=== PATIENT | female | born 1990 | race Caucasian/White ===

== ENCOUNTER 2019-12-19 16:50 | Emergency (ER) | payer OTHER ==
[~2019-12-19] VITALS: Ht 170.2 cm; Wt 54.7 kg
--- NOTE | 2019-12-19 18:10 | RAD ---
Bilateral lower extremity arterial duplex study 12/19/2019 CLINICAL HISTORY: Bilateral leg numbness with discolored toes. TECHNIQUE: Using a combination of real-time ultrasound imaging and color-flow and pulse doppler imaging techniques, duplex evaluation of the major arterial structures of both lower extremities was performed. Multiple images were obtained. FINDINGS: No significant atheromatous/atherosclerotic plaque formation is seen. Normal triphasic arterial waveforms are seen throughout the major arterial structures of both lower extremities. The peak systolic velocities taper normally. No hemodynamically significant stenosis or area of occlusion is seen. IMPRESSION: Negative study. Electronically signed by: Farzad Carrasco MD (12/19/2019 6:07 PM) [id number]
--- NOTE | 2019-12-19 18:17 | PHYS DOC ---
Adult General Chief Complaint Chief Complaint: LOWER EXTREMITY SWELLING HPI HPI Patient is a [age] year old [sex] who presents with [] Review of Systems Review of Systems Constitutional: Denies fever or chills [] Eyes: Denies change in visual acuity, redness, or eye pain [] HENT: Denies nasal congestion or sore throat [] Respiratory: Denies cough or shortness of breath [] Cardiovascular: No additional information not addressed in HPI [] GI: Denies abdominal pain, nausea, vomiting, bloody stools or diarrhea [] : Denies dysuria or hematuria [] Musculoskeletal: Denies back pain or joint pain [] Integument: Denies rash or skin lesions [] Neurologic: Denies headache, focal weakness or sensory changes [] Endocrine: Denies polyuria or polydipsia [] All other systems were reviewed and found to be within normal limits, except as documented in this note. Physical Exam Physical Exam Constitutional: Well developed, well nourished, no acute distress, non-toxic appearance. [] HENT: Normocephalic, atraumatic, bilateral external ears normal, oropharynx moist, no oral exudates, nose normal. [] Eyes: PERRLA, EOMI, conjunctiva normal, no discharge. [] Neck: Normal range of motion, no tenderness, supple, no stridor. [] Cardiovascular:Heart rate regular rhythm, no murmur [] Lungs & Thorax: Bilateral breath sounds clear to auscultation [] Abdomen: Bowel sounds normal, soft, no tenderness, no masses, no pulsatile masses. [] Skin: Warm, dry, no erythema, no rash. [] Back: No tenderness, no CVA tenderness. [] Extremities: No tenderness, no cyanosis, no clubbing, ROM intact, no edema. [] Neurologic: Alert and oriented X 3, normal motor function, normal sensory function, no focal deficits noted. [] Psychologic: Affect normal, judgement normal, mood normal. [] EKG EKG [] Radiology/Procedures Radiology/Procedures PROCEDURE: ARTERIAL STUDY LOWER EXT BI Bilateral lower extremity arterial duplex study 12/19/2019 CLINICAL HISTORY: Bilateral leg numbness with discolored toes. TECHNIQUE: Using a combination of real-time ultrasound imaging and color-flow and pulse doppler imaging techniques, duplex evaluation of the major arterial structures of both lower extremities was performed. Multiple images were obtained. FINDINGS: No significant atheromatous/atherosclerotic plaque formation is seen. Normal triphasic arterial waveforms are seen throughout the major arterial structures of both lower extremities. The peak systolic velocities taper normally. No hemodynamically significant stenosis or area of occlusion is seen. IMPRESSION: Negative study. Electronically signed by: Farzad Carrasco MD (12/19/2019 6:07 PM) [id number] Course & Med Decision Making Course & Med Decision Making Pertinent Labs and Imaging studies reviewed. (See chart for details) [] Dragon Disclaimer Dragon Disclaimer This electronic medical record was generated, in whole or in part, using a voice recognition dictation system. Departure Departure: Impression: Primary Impression: Numbness and tingling of both lower extremities Disposition: 01 HOME, SELF-CARE Condition: STABLE Referrals: ROSALINO SANTIAGO DO (PCP) Patient Instructions: Raynaud's Syndrome Additional Instructions: Discontinue use of tobacco and nicotine products JADEN SANCHEZ DO Dec 19, 2019 18:17
[2019-12-19 18:55] VITALS: BP 97/60
== END 2019-12-19 18:55 | disposition home or self-care (01) ==
LOC: ER 16:50
DX: R20.2 Paresthesia of skin (principal)
CPT/HCPCS: 93923; 99284

== ENCOUNTER → 2021-01-24 | Outpatient (CLI) | payer OTHER ==
--- NOTE | 2021-01-24 16:37 | RAD ---
Exam: Ultrasound OB less than 14 weeks Indication: Low hCG Technique: Real-time grayscale and color Doppler images of the pelvis were obtained by the department bone cooking operator. Comparisons: None FINDINGS: Uterus measures 9.0 x 5.3 x 5.5 cm. Endometrium is approximately 2 cm in thickness. No pole, yo lk sac or gestational sac are identified. Right ovary measures 3.4 x 3.1 x 2.5 cm. Left ovary measures 2.8 x 3.2 x 1.6 cm. Vascular flow identified the ovaries bilaterally. No free fluid. IMPRESSION: No pole, yolk sac or gestational sac identified. Differential considerations include early IUP, failed IUP or nonvisualized ectopic . Recommend correlation with serial beta hCG measuremen ts and short-term follow-up ultrasound. Electronically signed by: Geoff Cardona MD (01/24/2021 4:34 PM) SCOTT
== END ==
LOC: US 15:26
PROVIDERS: ATTEND Family Medicine Sports Medicine
DX: O26.91 Pregnancy related conditions, unspecified, first trimester (principal); Z3A.00 Weeks of gestation of pregnancy not specified
CPT/HCPCS: 76801; 76817

== ENCOUNTER 2021-11-05 10:21 | Emergency (ER) | payer OTHER ==
[~2021-11-05] VITALS: Ht 170.2 cm; Wt 58.2 kg
--- NOTE | 2021-11-05 10:41 | PHYS DOC ---
Past History Past Medical History: Other Additional Past Medical Histor: ADHD (ANGELA LOPEZ APRN) Past Surgical History: (ANGELA LOPEZ APRN) Alcohol Use: None Drug Use: None (ANGELA LOPEZ APRN) General Adult EDM: Chief Complaint: PAIN ON URINATION HPI: HPI: Patient is a 31-year-old female who presents with burning with urination. Patient denies abnormal discharge, odor. Patient states that symptoms started this morning. Denies taking thing at home for discomfort. Denies medical history. (ANGELA LOPEZ APRN) Review of Systems: Review of Systems: ROS At least 10 ROS systems have been reviewed and are negative except as documented in the HPI. General: Negative except as outlined in HPI above. Skin: Negative except as outlined in HPI above. HEENT: Negative except as outlined in HPI above. Neck: Negative except as outlined in HPI above. Respiratory: Negative except as outlined in HPI above.. Cardiovascular: Negative except as outlined in HPI above. Abdomen: Negative except as outlined in HPI above. : Negative except as outlined in HPI above. Back/MSK: Negative except as outlined in HPI above. Neuro: Negative except as outlined in HPI above. Psych: Negative except as outlined in HPI above. (ANGELA LOPEZ APRN) Current Medications: Current Meds: Current Medications Medications (Trade) Dose Ordered Sig/Nhi Start Time Stop Time Status Last Admin Dose Admin Phenazopyridine HCl (Pyridium) 200 mg 1X ONCE 11/05/21 11:00 11/05/21 11:01 (ANGELA LOPEZ APRN) Allergies: Allergies: Allergies Coded Allergies Type Severity Reaction Last Updated Verified Penicillins Allergy Unknown 12/22/19 Yes (ANGELA LOPEZ APRN) Physical Exam: PE: Constitutional: Well developed, well nourished, no acute distress, non-toxic appearance. [] HENT: Normocephalic, atraumatic, bilateral external ears normal, oropharynx moist, no oral exudates, nose normal. [] Eyes: PERRLA, EOMI, conjunctiva normal, no discharge. [] Neck: Normal range of motion, no tenderness, supple, no stridor. [] Cardiovascular:Heart rate regular rhythm, no murmur [] Lungs & Thorax: Bilateral breath sounds clear to auscultation [] Abdomen: Bowel sounds normal, soft, no tenderness, no masses, no pulsatile masses. [] Skin: Warm, dry, no erythema, no rash. [] Back: No tenderness, no CVA tenderness. [] Extremities: No tenderness, no cyanosis, no clubbing, ROM intact, no edema. [] Neurologic: Alert and oriented X 3, normal motor function, normal sensory function, no focal deficits noted. [] Psychologic: Affect normal, judgement normal, mood normal. [] (ANGELA LOPEZ APRN) EKG: EKG: [] (ANGELA LOPEZ APRN) Radiology/Procedures: Radiology/Procedures: [] (ANGELA LOPEZ APRN) Heart Score: C/O Chest Pain: No Risk Factors: Risk Factors: DM, Current or recent (<one month) smoker, HTN, HLP, family history of CAD, obesity. Risk Scores: Score 0 - 3: 2.5% MACE over next 6 weeks - Discharge Home Score 4 - 6: 20.3% MACE over next 6 weeks - Admit for Clinical Observation Score 7 - 10: 72.7% MACE over next 6 weeks - Early Invasive Strategies (ANGELA LOPEZ APRN) Course & Med Decision Making: Course & Med Decision Making Pertinent Labs and Imaging studies reviewed. (See chart for details) [] 31-year-old female presents with burning with urination. Afebrile. No flank pain. No abnormal discharge or odor. Work-up in ER consisted of UA and . Patient given Pyridium to help with discomfort. Discussed results with patient. Prescribed patient Macrobid. Discussed increasing fluids. (ANGELA LOPEZ APRN) Dragon Disclaimer: Draglian Disclaimer: This electronic medical record was generated, in whole or in part, using a voice recognition dictation system. (ANGELA LOPEZ APRN) Attending Co-Sign The patient was seen and interviewed as well as examined at the bedside. The chart was reviewed. The case was discussed. Agree with the plan of care. (MEREDITH GARNER DO) Departure Departure: Impression: Primary Impression: Urinary tract infection Qualified Codes: N30.00 - Acute cystitis without hematuria Disposition: HOME / SELF CARE / HOMELESS Condition: STABLE Referrals: KERRY MOON MD (PCP) Patient Instructions: Urinary Tract Infection Additional Instructions: You were seen in the emergency room for burning with urination. Your urine was tested and positive for infection. You are given Pyridium to help with discomfort. You can also purchase Azo [id number] which will help with the pain. Please take your antibiotic as directed. Drink plenty of fluids. Return to emergency room with worsening symptoms or concerns. EMERGENCY DEPARTMENT GENERAL DISCHARGE INSTRUCTIONS Thank you for coming to [facility] (ED) today and trusting us with you care. We trust that you had a positivie experience in our Emergency Department. If you wish to speak to the department management, you may call the director at [phone]. YOUR FOLLOW UP INSTRUCTIONS ARE FOLLOWS: 1. Do you have a private Doctor? If you do not have a private doctor, please ask for a resource list of physicians or clinics that may be able to assist you with follow up care. 2. The Emergency Physician has interpreted your x-rays. The X-Ray specialist will also review them. If there is a change in the findings, you will be notified in 48 hours when at all possible. 3. A lab test or culture has been done, your results will be reviewed and you will be notified if you need a change in treatment. ADDITIONAL INSTRUCTIONS AND INFORMATION: 1. Your care today has been supervised by a physician who is specially trained in emergency care. Many problems require more than one evaluation for a complete diagnosis and treatment. We recommend that you schedule your follow up appointment as recommended to ensure complete treatment of you illness or injury. If you are unable to obtain follow up care and continue to have a problem, or if your condition worsens, we recommend that you return to the ED. 2. We are not able to safely determine your condition over the phone nor are we able to give sound medical advice over the phone. For these safety reasons, if you call for medical advice we will ask you to come to the ED for further evaluation. 3. If you have any questions regarding these discharge instructions please call the ED at [phone]. SAFETY INFORMATION: In the interest of safety, wellness, and injury prevention; we encourage you to wear your sealbelt, if you smoke; quite smoking, and we encourage family to use a protective helmet for bicycling and other sporting events that present an increased risk for head injury. IF YOUR SYMPTOMS WORSEN OR NEW SYMPTOMS DEVELOP, OR YOU HAVE CONCERNS ABOUT YOUR CONDITION; OR IF YOUR CONDITION WORSENS WHILE YOU ARE WAITING FOR YOUR FOLLOW UP APPOINTMENT; EITHER CONTACT YOUR PRIMARY CARE DOCTOR, THE PHYSICIAN WHOSE NAME AND NUMBER YOU WERE GIVEN, OR RETURN TO THE ED IMMEDIATELY. Scripts Nitrofurantoin Monohyd/M-Cryst (MACROBID 100 MG CAPSULE) 100 Mg Capsule 100 CAP PO BID for UTI for 5 Days, #10 CAP Prov: ANGELA LOPEZ APRN 11/05/21 ANGELA LOPEZ APRN Nov 05, 2021 10:41 MEREDITH GARNER DO Nov 06, 2021 06:17
[2021-11-05] MEDS ORDERED: PHENAZOPYRIDINE 200 MG TABLET. PO ONE (11:00)
[2021-11-05 11:25] LABS: BACTERIA,URINE FEW /HPF (0-FEW); BILIRUBIN,URINE NEG (NEG); CLARITY,URINE HAZY; COLOR,URINE STRAW; GLUCOSE,URINE NEG (NEG); NITRITE,URINE NEG (NEG); SQUAMOUS EPITHELIAL CELL,UR FEW /LPF; UROBILINOGEN,URINE 0.2 mg/dL (0.2 mg/dL)
[2021-11-05] MEDS ORDERED: NITR100C62 PO (11:31)
[2021-11-05 11:35] VITALS: BP 101/66
== END 2021-11-05 11:35 | disposition home or self-care (01) ==
LOC: ER 10:21
DX: N39.0 Urinary tract infection, site not specified (principal); Z88.0 Allergy status to penicillin
CPT/HCPCS: 81001; 81025; 87086; 99283-25